=== PATIENT | male | born 2000 | race African-American/Black ===

== ENCOUNTER 2021-12-07 01:23 | Emergency (ER) | payer MEDICAID, OTHER ==
[~2021-12-07] VITALS: Ht 182.9 cm; Wt 92.8 kg
[2021-12-07] MEDS ORDERED: AMOX-494 MT (05:23)
[2021-12-07] MEDS ORDERED: IBUP-2029 MT (05:23)
[2021-12-07] MEDS ORDERED: KETOROLAC 60MG/2ML VIAL IM ONE (05:30)
[2021-12-07 05:51] VITALS: BP 128/84
== END 2021-12-07 05:51 | disposition home or self-care (01) ==
LOC: ER 01:23
DX: R68.84 Jaw pain (principal); K08.89 Other specified disorders of teeth and supporting structures
CPT/HCPCS: 96372; 99283; J1885